=== PATIENT | female | born 1995 | race Two or more races ===

== ENCOUNTER 2018-12-18 20:12 | Emergency (ER) | payer SELFPAY ==
[2018-12-18 20:14] VITALS: BMI 17.9
[2018-12-18 20:16] VITALS: RESP 18; O2SAT 99
[2018-12-18] MEDS ORDERED: Naproxen 500 MG TAB PO ONE ×2 (20:43→20:54)
--- NOTE | 2018-12-18 20:59 | ED PDOC ---
Lower Extremity Pain/Injury Time Seen by Provider: 12/18/18 20:39 Chief Complaint (Nursing): Lower Extremity Problem/Injury History Per: Patient Additional Complaint(s): Pt. states yesterday she developed mild pain on the R foot. Pain has progressively worsened. Pt. states she is currently visiting from [place] and has been walking a lot in [facility] wearing only sandals. Denies numbness, tingling, trauma, rash, calf pain. Past Medical History Reviewed: Historical Data, Nursing Documentation, Vital Signs Vital Signs: Last Vital Signs Temp 98.4 F 12/18/18 20:34 Pulse 77 12/18/18 20:34 Resp 18 12/18/18 20:34 BP 113/72 12/18/18 20:34 Pulse Ox 99 12/18/18 20:34 Primary Care Provider: FAMILY PROVIDER,NO - Surgical History Surgical History: Appendectomy - Family History Family History: States: No Known Family Hx - Immunization History Hx Tetanus Toxoid Vaccination: No Hx Influenza Vaccination: No Hx Pneumococcal Vaccination: No - Allergies Allergies/Adverse Reactions: Allergies Allergy/AdvReac Type Severity Reaction Status Date / Time No Known Allergies Allergy Verified 12/18/18 20:37 Review of Systems ROS Statement: Except As Marked, All Systems Reviewed And Found Negative Musculoskeletal: Positive for: Foot Pain Physical Exam - Physical Exam Appears: Positive for: Well, Non-toxic, No Acute Distress Skin: Positive for: Normal Color, Warm. Negative for: Rash Eye Exam: Positive for: Normal appearance Pulses-Dorsalis Pedis (L): 2+ Pulses-Dorsalis Pedis (R): 2+ Extremity: Positive for: Other (b/l feet with no tenderness, swelling, deformity, break in skin integrity, warmth, erythema, lesions; FROM actively of b/l ankles and all toes). Negative for: Pedal Edema (b/l), Calf Tenderness (b/l) Neurological/Psych: Positive for: Awake, Alert, Oriented (x3) - ECG O2 Sat by Pulse Oximetry: 99 - Radiology X-Ray: Read By Radiologist (R foot x-ray ([facility])) X-Ray Interpretation: No Acute Disease - Progress ED Course And Treament: Foot james wrapped and placed in surgical shoe by electrical assembly technician. Crutches and crutch walking instructions provided by electrical assembly technician. Naproxen 500mg PO ordered. Disposition - Clinical Impression Clinical Impression: Foot pain - Patient ED Disposition Is Patient to be Admitted: No - Disposition Referrals: [facility] [Outside] Disposition: Routine/Home Disposition Time: 21:22 Condition: STABLE Additional Instructions: FOLLOW UP WITH [facility] FOR FURTHER EVALUATION RETURN TO ED IMMEDIATELY IF SYMPTOMS WORSEN KHOI GUERRERO, thank you for letting us take care of you today. Your provider was Diamond Wasserman MD and you were treated for RIGHT FOOT PAIN. The emergency medical care you received today was directed at your acute symptoms. If you were prescribed any medication, please fill it and take as directed. It may take several days for your symptoms to resolve. Return to the Emergency Department if your symptoms worsen, do not improve, or if you have any other problems. Please contact your doctor or call one of the physicians/clinics you have been referred to that are listed on the Patient Visit Information form that is included in your discharge packet. Bring any paperwork you were given at discharge with you along with any medications you are taking to your follow up visit. Our treatment cannot replace ongoing medical care by a primary care provider outside of the emergency department. Thank you for allowing the [facility] team to be part of your care today. If you had an X-Ray or CT scan: A Radiologist will review the ED reading if any change in treatment is needed we will contact you. If you had a blood, urine, or wound culture: It will take several days for the results, if any change in treatment is needed we will contact you. If you had an STI test: It will take 48 hours for the results. Please call after 1 week if you have not heard back. Instructions: Metatarsalgia (DC) Forms: [facility] (Moroccan) Print Language: PORTUGUESE
[2018-12-18 22:13] VITALS: BP 110/68; PULSE 82; TEMP 98.6
--- NOTE | 2018-12-19 08:49 | RAD ---
Date of service: 12/18/2018 PROCEDURE: Right Foot Radiographs. HISTORY: pain COMPARISON: None. TECHNIQUE: 3 views obtained. FINDINGS: BONES: No acute fracture or destructive bony lesion identified. JOINTS: Normal. SOFT TISSUES: Normal. OTHER FINDINGS: None. IMPRESSION: Unremarkable right foot radiographs.
== END 2018-12-18 22:04 | disposition home or self-care (01) ==
LOC: H.ER 20:12
DX: M79.671 Pain in right foot (principal)